=== PATIENT | female | born 1995 | race Caucasian/White ===

== ENCOUNTER → 2024-04-04 11:05 | Outpatient (REF) | payer OTHER, SELFPAY ==
[2024-04-04 13:02] LABS: Hepatitis B Surface Antibody Positive
== END ==
LOC: OHS 11:05
PROVIDERS: ATTENDING PHYSICIAN Nurse Practitioner Family
DX: Z23 Encounter for immunization (principal)
CPT/HCPCS: 86480; 86706

== ENCOUNTER → 2024-07-08 14:00 | Outpatient (REF) | payer OTHER, SELFPAY | LOC: CLAB 14:00 | PROVIDERS: ATTENDING PHYSICIAN Emergency Medicine | DX: J02.9 Acute pharyngitis, unspecified (principal) | CPT/HCPCS: 87070 ==